=== PATIENT | female | born 1990 | race Caucasian/White ===

== ENCOUNTER 2024-10-22 12:02 | Emergency (ER) | payer OTHER, SELFPAY ==
[2024-10-22 12:23] VITALS: BP 113/66; PULSE 93; RESP 18; TEMP 36.9; O2SAT 98; BMI 23.1
[2024-10-22 15:06] VITALS: BP 119/66; PULSE 81; RESP 16; O2SAT 95
--- NOTE | 2024-10-22 15:36 | ED.RECABL ---
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 PAtient states she has been unable to take her medications for 5 days as she has run out. Denies acute change in symptoms. No fevers or chills, no new traumatic injury, no new numbness or weakness. No abdominal pain, n/v/d, no urinary symptoms. Related Data Allergies Allergy/AdvReac Type Severity Reaction Status Date / Time ketorolac [From Toradol] Allergy On Verified 10/22/24 12:23 thinners - xarelto cyclobenzaprine AdvReac Vomiting Verified 10/22/24 12:23 [From Flexeril] gabapentin AdvReac Vomiting Verified 10/22/24 12:23 methocarbamol [From Robaxin] AdvReac Vomiting Verified 10/22/24 12:23 NSAIDS (Non-Steroidal AdvReac on Verified 10/22/24 12:23 Anti-Inflamma thinners - xarelto Review of Systems Review of Systems ROS Unobtainable: All systems reviewed & are unremarkable except as noted in HPI and below Constitutional Constitutional: Denies fever(s) and Denies weakness Eyes Eyes: Denies diplopia Cardiovascular Cardiovascular: Denies lightheadedness Gastrointestinal Gastrointestinal: Denies change in bowel habits Genitourinary Genitourinary: Denies urinary incontinence Musculoskeletal Musculoskeletal: Reports as per HPI Neurologic Neurologic: Denies weakness Patient History Social History Smoking Status: Current every day smoker Smoking Status: Current every day smoker tobacco type: cigarettes Exam Initial Vital Signs Initial Vital Signs: Vital Signs Temperature 98.4 F 10/22/24 12:23 Pulse Rate 93 H 10/22/24 12:23 Respiratory Rate 18 10/22/24 12:23 Blood Pressure 113/66 10/22/24 12:23 Pulse Oximetry 98 10/22/24 12:23 Oxygen Delivery Method Room Air 10/22/24 12:23 Const General: cooperative HENMT Head: atraumatic Face and sinus: face symmetric Eyes Conjunctivae: conjunctivae normal Resp Effort & Inspection: normal respiratory effort, able to speak in complete sentences and no respiratory distress Auscultation: clear to auscultation bilaterally Cardio Rate: regular rate Rhythm: regular rhythm GI Inspection: non-distended Palpation: soft Back/Spine/Pelvis Cervical Spine: cervical ROM normal Neuro General: patient alert Psych Mental Status: mental status grossly normal Course Orders Ordered: Discontinued Medications Lidocaine (Lidocaine 5% Patch) 1 each TOP NOW ONE Stop: 10/22/24 15:52 Last Admin: 10/22/24 16:04 Dose: Not Given Documented By: RLS Vital Signs Vital signs: Vital Signs - 8 hr 10/22/24 12:23 10/22/24 15:06 Temperature 98.4 F Pulse Rate 93 H 81 Respiratory Rate 18 16 Blood Pressure 113/66 119/66 Pulse Oximetry 98 95 Oxygen Delivery Method Room Air Room Air MDM - Recheck/Abnormal Lab/Rx Differential Diagnosis Differential diagnosis: Likely encounter for medication refill Medical Records Attestation: I reviewed the patient's medical records. Medical records narrative: PDMP reveals multiple refills including full refill on 10/05/24 and additional short course on 10/16 of patient carisoprodol. [facility] Narrative Medical decision making narrative: History and exam as above. Patient presenting with chronic low back pain with right sided sciatica without acute worsening. Exam overall reassuring and without findings to suggest acute injury or complication. No new weakness, numbness, incontinence or saddle anesthesia to suggest cauda equina. Given numerous prior refills suspect there may also be component of medication seeking behavior. No hip pain, swelling, pain with passive rom to suggest septic joint. No increased swelling in the distal extremity to suggest new DVT, although exam is partially limited by intact wound care wrappings following recent surgical intervention. Discussed patient's recent medication fills with her. Expressed that we would be able to provide her with pain management in the emergency department however recommend centralizing her further refills through her pcp in order to minimize risk of overdose or other complication. Patient amenable to lidocaine patch for further pain management. Discharged in stable condition. Discharge Plan Departure Patient Disposition: Home Clinical Impression: Encounter for medication refill Chronic low back pain with right-sided sciatica Qualifiers: Back pain laterality: right Qualified Code(s): M54.41 - Lumbago with sciatica, right side Activity Restrictions/Additional Instructions: You were seen in the emergency department for your back pain with sciatica. Evaluation here including examination was overall reassuring against an acute process that would require intervention or admission to the hospital. Unfortunately we do not have your medication in formulary in this emergency department. You have been provided with a lidocaine patch in the interim, we recommend following up closely with your primary care doctor for management of your outpatient pain regimen. If you develop new pain, urinary incontinence, fevers or chills, other symptoms that are concerning to you, please return to the emergency department for further evaluation. Stand Alone Forms: Patient Portal/API/Survey
[2024-10-22 16:05] VITALS: BP 119/62; PULSE 73; RESP 15; O2SAT 97
== END 2024-10-22 16:07 | disposition home or self-care (01) ==
PROVIDERS: Emergency Provider Student in an Organized Health Care Education/Training Program
DX: Z76.0 Encounter for issue of repeat prescription (principal); M54.50 Low back pain, unspecified
CPT/HCPCS: 99281